=== PATIENT | male | born 1985 | race Caucasian/White ===

== ENCOUNTER → 2023-11-29 14:16 | Outpatient (CLI) | payer OTHER, SELFPAY ==
--- NOTE | 2023-11-29 14:18 | DI.RAD.S_ITS ---
PROCEDURE: XR FOOT RT MIN 3V INDICATIONS: rolled ankle 7 days ago, 3rd/4th meta tenderness/pn TECHNIQUE: 3 views of the foot were acquired. COMPARISON: None. FINDINGS: Bones: No fractures or dislocations. No suspicious bony lesions. Plantar and dorsal calcaneal enthesophytes. Soft tissues: Moderate tibiotalar joint effusion. Achilles tendon appears normal. IMPRESSION: No acute bony abnormality. Dictated by: Jadiel Harrison M.D. on 11/29/2023 at 14:51 Approved by: Jadiel Harrison M.D. on 11/29/2023 at 14:51
--- NOTE | 2023-11-29 14:18 | DI.RAD.S_ITS ---
PROCEDURE: XR ANKLE RT MIN 3V INDICATIONS: rolled r ankle pain/tender/swelling TECHNIQUE: 3 views of the ankle were acquired. COMPARISON: None. FINDINGS: Bones: Well corticated ossification along the inferior margin of the lateral malleolus. No acute, displaced fracture. Soft tissues: Moderate tibiotalar joint effusion. Achilles tendon appears normal. IMPRESSION: No acute bony abnormality. Moderate joint effusion. Internal derangement not excluded. Remote avulsion fracture of the lateral malleolus. Dictated by: Jadiel Harrison M.D. on 11/29/2023 at 14:50 Approved by: Jadiel Harrison M.D. on 11/29/2023 at 14:50
== END ==
PROVIDERS: Referring Provider Student in an Organized Health Care Education/Training Program; Visit Provider Student in an Organized Health Care Education/Training Program
DX: S99.921A Unspecified injury of right foot, initial encounter (principal); M25.474 Effusion, right foot; X58.XXXA Exposure to other specified factors, initial encounter
CPT/HCPCS: 73610; 73630

== ENCOUNTER → 2024-05-22 12:14 | Outpatient (CLI) | payer OTHER, SELFPAY ==
--- NOTE | 2024-05-22 12:15 | DI.RAD.S_ITS ---
PROCEDURE: XR CHEST 2V INDICATIONS: SHORTNESS OF BREATH TECHNIQUE: 2 views of the chest were acquired. COMPARISON: None. FINDINGS: Surgical changes and devices: None. Lungs and pleura: Ill-defined airspace opacities are noted in bilateral lower lung [place]. Mild pulmonary vascular congestion and pulmonary edema is also neck Ave present. No pleural effusions or pneumothorax. Mediastinum: Mediastinal contours are normal. Heart size is normal. Bones and chest wall: No suspicious bony abnormalities. Soft tissues appear unremarkable. IMPRESSION: Suggestion of mild pulmonary vascular congestion and pulmonary edema. Cannot rule out small bilateral lower lobe infiltrates versus atelectasis. No gross pneumothorax. Dictated by: Greg Riddle M.D. on 05/22/2024 at 16:29 Approved by: Greg Riddle M.D. on 05/22/2024 at 16:30
== END ==
LOC: RAD 12:14
PROVIDERS: PCP Registered Nurse; Referring Provider Registered Nurse; Visit Provider Registered Nurse
DX: J15.8 Pneumonia due to other specified bacteria (principal); R06.02 Shortness of breath
CPT/HCPCS: 71046

== ENCOUNTER → 2024-08-03 10:33 | Outpatient (CLI) | payer BC, SELFPAY ==
--- NOTE | 2024-08-03 10:34 | DI.RAD.S_ITS ---
PROCEDURE: XR CHEST 2V INDICATIONS: Shortness of breath TECHNIQUE: 2 views of the chest were acquired. COMPARISON: [facility], CR, XR CHEST 2V, 05/22/2024, 12:26. FINDINGS: Surgical changes and devices: None. Lungs and pleura: Lungs are clear. No pleural effusions or pneumothorax. Mediastinum: Mediastinal contours are normal. Heart size is normal. Bones and chest wall: No suspicious bony abnormalities. Soft tissues appear unremarkable. IMPRESSION: No acute cardiopulmonary abnormality is seen. Dictated by: Shree Joy M.D. on 08/04/2024 at 10:49 Approved by: Shree Joy M.D. on 08/04/2024 at 10:55
== END ==
PROVIDERS: PCP Registered Nurse; Referring Provider Registered Nurse; Visit Provider Registered Nurse
DX: R06.02 Shortness of breath (principal)
CPT/HCPCS: 71046

== ENCOUNTER → 2025-05-13 16:34 | Outpatient (ROUT) | payer SELFPAY ==
[2025-05-13 17:16] LABS: Influenza A - CEPHEID Flu A NEGATIVE (NEGATIVE); Influenza B - CEPHEID Flu B NEGATIVE (NEGATIVE)
[2025-05-13 17:18] LABS: COVID-19 CEPHEID 4-PLEX PCR Negative (Negative)
== END ==
PROVIDERS: PCP Registered Nurse; Visit Provider Registered Nurse
DX: R05.1 Acute cough (principal)
CPT/HCPCS: 87637